=== PATIENT | female | born 1955 | race Caucasian/White ===

== ENCOUNTER 2018-06-16 23:49 | Emergency (ER) | payer BC ==
[2018-06-17] MEDS ORDERED: Rabies Immune Globulin 10 ML* 150 UNIT/ML VIAL IM ONE (00:17)
[2018-06-17] MEDS ORDERED: Rabies Vaccine (RabAvert)* 2.5 UNITS VIAL IM ONE (00:18)
[2018-06-17] MEDS ORDERED: Tetan/Diph/Pertus SYR(Tdap)* 0.5 ML SYR(BOOSTRIX) use SYR IM ONE (00:18)
[2018-06-17] MEDS ORDERED: Amoxicillin/Clavulanate TAB* 875 MG PO ONE (00:19)
--- NOTE | 2018-06-17 01:23 | ED ---
Bite Injury/Animal - HPI Summary HPI Summary: This patient is a 63 year old F presenting to [facility] accompanied by a friend with a chief complaint of a raccoon bite to the right posterior calf, occurring prior to arrival. Patient states a raccoon approached and bit her, but ran off after she shook her leg while it was biting her. She states she cleaned the wound and applied Neosporin. Patient states her last tetanus shot was between 5- 10 years ago. - History of Current Complaint Chief Complaint: EDAnimalBite Stated Complaint: RACCOON BITE Time Seen by Provider: 06/17/18 00:11 Hx Obtained From: Patient Onset of Injury: Happened minutes ago Type of Bite: Wild Animal Has Animal Been Immunized?: No Severity Initially: Severe Severity Currently: Mild Pain Intensity: 1 Pain Scale Used: 0-10 Numeric Character: Puncture Associated Signs And Symptoms: Positive: Negative Animal Available for Observation: No Animal Control Notified: Yes - Allergies/Home Medications Allergies/Adverse Reactions: Allergies Allergy/AdvReac Type Severity Reaction Status Date / Time No Known Allergies Allergy Verified 06/16/18 23:56 PMH/Surg Hx/FS Hx/Imm Hx Respiratory History: Denies: Hx Asthma History: Denies: Hx Acute Renal Failure Musculoskeletal History: Denies: Hx Osteoporosis, Hx Scoliosis EENT History: Denies: Hx Deafness Neurological History: Denies: Hx Headaches, Other Neuro Impairments/Disorders - Cancer History Hx Chemotherapy: No Hx Radiation Therapy: No Infectious Disease History: No Infectious Disease History: Denies: Traveled Outside the [place] in Last 30 Days - Family History Known Family History: Negative: Respiratory Disease - Social History Alcohol Use: None Substance Use Type: Reports: None Smoking Status (MU): Never Smoked Tobacco Review of Systems Positive: Myalgia Positive: Other - bite wound to right calf All Other Systems Reviewed And Are Negative: Yes Physical Exam - Summary Physical Exam Summary: Appearance: Well-appearing, Well-nourished, lying in bed comfortable Skin: Warm, dry, no obvious rash, Right calf bite wound with associated bruising with numerous puncture wounds consistent with a raccoon bite Eyes: sclera anicteric, no conjunctival pallor ENT: mucous membranes moist Neck: deferred Respiratory: No signs of respiratory distress Cardiovascular: Appears well perfused, pulses are nml Abdomen: deferred Musculoskeletal: Moving all 4 extremities without obvious discomfort, Neurological: Awake and alert, mentation is normal, speech is fluent and appropriate Psychiatric: affect is normal, does not appear anxious or depressed Triage Information Reviewed: Yes Vital Signs On Initial Exam: Initial Vitals Temp Pulse Resp BP Pulse Ox 97.3 F 85 20 136/62 97 06/16/18 23:54 06/16/18 23:54 06/16/18 23:54 06/16/18 23:54 06/16/18 23:54 Vital Signs Reviewed: Yes Diagnostics - Vital Signs Vital Signs Temp Pulse Resp BP Pulse Ox 06/16/18 23:54 97.3 F 85 20 136/62 97 - Laboratory Lab Statement: Any lab studies that have been ordered have been reviewed, and results considered in the medical decision making process. Bite Injury Course/Dx - Course Course Of Treatment: 63 year old F presenting to [facility] accompanied by a friend with a chief complaint of a raccoon bite to the right posterior calf, occurring prior to arrival. Patient states her last tetanus shot was between 5-10 years ago. Patient was given Tetanus booster, Rabies vaccine, Rabiess Immune Globin, and Augmentin. Patient was instructed to throughly clean the wound with warm water and soap when she gets home. Patient is discharged home. Discharge - Sign-Out/Discharge Documenting (check all that apply): Patient Departure - discharge - Discharge Plan Condition: Good Disposition: HOME Prescriptions: Amoxicillin/Clavulanate TAB* [Augmentin TAB 875*] 875 mg PO BID #10 tab Patient Education Materials: Rabies Immune Globulin (By injection), Rabies (ED) , Rabies Vaccine (ED) Referrals: Lili Man MD [Primary Care Provider] - Additional Instructions: When you get back to [place], go in the shower and vigorously wash the area with lots of soap and water. I would expect some bleeding but that can be managed with a few minutes of direct pressure after you are done, and then a bandage. Hopefully between the antisepsis you did early, the antibiotics and good mechanical cleansing you will avoid an infection. - Attestation Statements Document Initiated by Scribe: Yes Documenting Scribe: Gianna Major Provider For Whom Scribe is Documenting (Include Credential): Reagan Shaikh MD Scribe Attestation: I, Gianna Major, scribed for Reagan Shaikh MD on 06/17/18 at 0130.
[2018-06-17 02:02] VITALS: BP 120/74
== END 2018-06-17 02:01 | disposition home or self-care (01) ==
LOC: ED 23:49
DX: S81.851A Open bite, right lower leg, initial encounter (principal); W55.51XA Bitten by raccoon, initial encounter; Y92.9 Unspecified place or not applicable
CPT/HCPCS: 90375; 90471; 90675; 90715; 99282; A9270-GY

== ENCOUNTER 2019-04-03 14:45 | Emergency (ER) | payer BC ==
[2019-04-03] MEDS ORDERED: Ketorolac INJ* 30 MG/ML 1 ML VIAL IM ONE (14:57)
--- NOTE | 2019-04-03 15:13 | ED ---
Upper Extremity Pain - HPI Summary HPI Summary: 64-year-old female presents with left wrist deformity. She states that she slipped on some mud while she was hiking. She states that she is left-handed. She drove herself here. She denies any numbness or tingling. She has pain over the radial aspect of left wrist. Has a history of thyroid issues. No pain into the elbow. No other injury. - History of Current Complaint Chief Complaint: EDExtremityUpper Stated Complaint: POSSIBLE LEFT ARM FRACTURE PER PT Time Seen by Provider: 04/03/19 14:51 - Allergies/Home Medications Allergies/Adverse Reactions: Allergies Allergy/AdvReac Type Severity Reaction Status Date / Time No Known Allergies Allergy Verified 04/03/19 14:49 PMH/Surg Hx/FS Hx/Imm Hx Endocrine/Hematology History: Denies: Hx Anticoagulant Therapy Respiratory History: Denies: Hx Asthma History: Denies: Hx Acute Renal Failure Musculoskeletal History: Denies: Hx Osteoporosis, Hx Scoliosis Sensory History: Denies: Hx Deafness Neurological History: Denies: Hx Headaches, Other Neuro Impairments/Disorders - Cancer History Hx Chemotherapy: No Hx Radiation Therapy: No Infectious Disease History: No Infectious Disease History: Denies: Traveled Outside the [place] in Last 30 Days - Family History Known Family History: Negative: Respiratory Disease - Social History Alcohol Use: None Substance Use Type: Reports: None Smoking Status (MU): Never Smoked Tobacco Review of Systems Negative: Fever Negative: Chest Pain Negative: Shortness Of Breath Positive: Myalgia - left wrist pain All Other Systems Reviewed And Are Negative: Yes Physical Exam Triage Information Reviewed: Yes Vital Signs On Initial Exam: Initial Vitals Temp Pulse Resp BP Pulse Ox 97.7 F 111 16 110/82 96 04/03/19 14:45 04/03/19 14:45 04/03/19 14:45 04/03/19 14:45 04/03/19 14:45 Vital Signs Reviewed: Yes Appearance: Positive: Well-Appearing Skin: Positive: Warm, Dry Head/Face: Positive: Normal Head/Face Inspection Eyes: Positive: Normal, Conjunctiva Clear ENT: Positive: Pharynx normal Respiratory/Lung Sounds: Positive: Clear to Auscultation, Breath Sounds Present Cardiovascular: Positive: Normal, RRR Musculoskeletal: Positive: Limited @ - left wrist, Other - deformity to left wrist, good pulses, tenderness left wrist Neurological: Positive: Normal Psychiatric: Positive: Normal Procedures - Splinting left wrist Location: left wrist Hand-Made Type: orthoglass Pre-Proc Neuro Vasc Exam: normal Post-Proc Neuro Vasc Exam: normal Splint Applied by Provider: Daphnie Ruiz - Joint Reduction left wrist Joint Reduction Site: wrist (L) Reduction Attempts: 1 Post Joint Reduction Film: joint reduced - improved Diagnostics - Vital Signs Vital Signs Temp Pulse Resp BP Pulse Ox 04/03/19 14:45 97.7 F 111 16 110/82 96 - Laboratory Lab Statement: Any lab studies that have been ordered have been reviewed, and results considered in the medical decision making process. - Radiology wrist Radiology Interpretation Completed By: Radiologist Summary of Radiographic Findings: REPORT AND IMPRESSION: #. Mildly comminuted and disproportionally dorsally impacted fracture centered at the. distal metaphysis of the radius with intra-articular extension at the distal radioulnar. and radiocarpal joints. Associated grossly nondisplaced ulnar styloid avulsion. #. The proximal carpal row remains aligned with the dorsally tilted distal radial. articular surface. #. Surrounding soft tissue swelling. #. Negative for more proximal fracture of the radius or ulna. wrist reduction Radiology Interpretation Completed By: Radiologist Summary of Radiographic Findings: #. Cast limits image quality. Improved alignment at the comminuted fracture of the distal. radius with significant reduction in degree of dorsal tilt of the distal radioarticular. surface. Only mild displacement at the ulnar styloid avulsion. Course/Dx - Course Course Of Treatment: 64-year-old female presents with left wrist deformity. She states that she slipped on some mud while she was hiking. She states that she is left-handed. She drove herself here. She denies any numbness or tingling. She has pain over the radial aspect of left wrist. Has a history of thyroid issues. No pain into the elbow. No other injury.. On exam tenderness lower back and left flank. Negative straight leg raise. Neurovascularly intact. xrays shows radius and ulna fx. performed hematoma block. reduced wrist with finger traps and manual traction and placed in sugar tong splint. repeat xray improvement in displacement. told to ice and elevated. told follow up with ortho. patient understand and agrees with plan. - Diagnoses Differential Diagnosis/HQI/PQRI: Positive: Fracture (Closed), Strain, Sprain Provider Diagnoses: Left wrist fracture Discharge - Sign-Out/Discharge Documenting (check all that apply): Patient Departure Patient Received Moderate/Deep Sedation with Procedure: No - Discharge Plan Condition: Good Disposition: HOME Prescriptions: traMADol TAB* [Ultram*] 50 mg PO Q8H PRN #9 tab MDD 3 PRN Reason: Pain - Severe Patient Education Materials: Wrist Fracture in Adults (ED) Referrals: Caro Craft MD [Primary Care Provider] - Elder Couch MD [Medical Doctor] - Additional Instructions: Keep elbow in sling as needed Keep splint on area and keep dry Call ortho office tomorrow to set up appointment for follow up Use ibuprofen 400-600mg or tyenlol for pain every 6 hours and use tramadol for breakthrough pain every 8 hours Ice, elevate Return to ED if develop any new or worsening symptoms - Billing Disposition and Condition Condition: GOOD Disposition: Home - Attestation Statements Provider Attestation: I was available for consult. This patient was seen by the JUAN PABLO. The patient was not presented to, seen by, or examined by me. -Codi
[2019-04-03 17:45] VITALS: BP 143/61
== END 2019-04-03 17:43 | disposition home or self-care (01) ==
LOC: ED 14:45
DX: S62.102A Fracture of unspecified carpal bone, left wrist, initial encounter for closed fracture (principal); W01.0XXA Fall on same level from slipping, tripping and stumbling without subsequent striking against object, initial encounter; Y93.01 Activity, walking, marching and hiking; Y92.9 Unspecified place or not applicable; E07.9 Disorder of thyroid, unspecified
CPT/HCPCS: 25680; 96372; 99282; J1885